=== PATIENT | female | born 1990 | race Caucasian/White ===

== ENCOUNTER 2016-10-08 00:15 | Emergency (ER) | payer OTHER ==
[~2016-10-08] VITALS: Ht 165.1 cm; Wt 95.3 kg
[2016-10-08 00:18] VITALS: BP 124/78; PULSE 98; RESP 16; O2SAT 99
--- NOTE | 2016-10-08 00:41 | ED.REPORT ---
HPI-Abd Pain F Under 41 Date of Service Oct 08, 2016 ED Provider: Boni Anderson MD Pt is a 26 y.o. female who presents to the ED c/o vomiting onset 5 days ago. Pt reports associated nausea, abdominal pain, and decreased PO intake. Pt states that it is possible she is as they have been trying, she states her sx are similar to the last time she was however she had a negative test several days ago. Nursing Notes Stated Complaint: VOMITING Chief Complaint: General Complaint Nursing Notes Reviewed: Yes Allergies: Coded Allergies: No Known Allergies (Unverified , 10/08/16) General Time Seen by MD: 00:39 Chief Complaint Vomiting mild Hx Obtained From: Patient Arrived By: Walk-in Sudden in Onset?: Yes Onset Occurred: 5 days ago Symptom Duration: Since onset Location: : Diffuse Quality: Painful Severity: Current: No pain currently Severity: Maximum: Moderate Past Medical History Past Medical History Healthy Past Surgical History None reported Social History Alcohol Use: "Social" Ambulatory Status Independent Review of Systems Decreased PO intake GI: Reports: Abdominal pain, Nausea, Vomiting Complete sys rev & neg: except as marked. Physical Exam Initial Vital Signs Vital Signs (First) Date Time Temp Pulse Resp B/P Pulse Ox O2 Delivery O2 Flow Rate FiO2 10/08/16 00:18 37.2 98 16 124/78 99 Room Air Initial VS: Reviewed, Vital signs normal Head / Eyes: Atraumatic, Normocephalic Extremities: Vascular intact, Neuro intact Skin: Warm, Dry, No cyanosis Neurologic: Alert, Oriented, Nonfocal Psychiatric: Mood/affect normal, Behavior normal, Normal thought content General/Constitutional: Awake, Alert, No acute distress, Well developed, Not toxic appearing Appearance / Presentation: Positive: Obese, Pale Respiratory / Chest: Atraumatic, Breath sounds NL, Breath sounds = bilat, No respiratory distress Cardiovascular: Heart rate NL, Regular rhythm, Heart sounds NL, Peripheral circulation NL Abdomen: Atraumatic, Soft, No distention Back: Atraumatic ENT: Atraumatic Mouth: Positive: Mucous membranes dry Interpretation & Diagnostics Lab Results Interpretation Test 10/08/16 00:53 10/08/16 01:10 Hold Urine Received (Received) Hold Purple Top Tube Received (Received) Hold Organ Top Tube Received (Received) Point of Care Testing: Preg test pos - urine Re-Eval/Medical Decision Med Decision/Clinical Course 6-year-old female with nausea and vomiting. She is found to be . She was given Phenergan and a liter of IV hydration with improvement. She will be discharged home to follow up with her regular doctor. Source of Hx: Old records Re-Evaluation/Progress : Time of Eval: 02:37 Re-Evaluation/Progress Note: Pt rechecked. Pt is feeling improved. Discussed plan for discharge, pt understands and agrees with plan. Counseled Regarding: Diagnosis, Lab results, Need for follow-up, When/why to return to ED Discharge & Departure Primary Impression: Dehydration Additional Impressions: Weeks of gestation: unspecified Qualified Code: Z33.1 - state, incidental Vomiting Vomiting type: unspecified Vomiting Intractability: unspecified Nausea presence: with nausea Qualified Code: R11.2 - Nausea with vomiting, unspecified Disposition: Home Discharge Condition All VS Reviewed: Yes Condition: Improved Patient Instructions: (ED) Additional Instructions: You are . Small amounts of clear liquids frequently. Talk to your regular doctor about nausea medicines for . Referrals: [facility] Scribe Attestation Portions of this note were transcribed by Analia Snider. I, Dr. Anderson personally performed the history, physical exam and medical decision-making; I reviewed and confirmed the accuracy of the information in the transcribed note. Signed by: Charla Mao, 10/08/16 and 0251. copies to: [facility] Boni Anderson MD Oct 08, 2016 00:41 ANALIA SNIDER Oct 08, 2016 00:53
[2016-10-08] MEDS ORDERED: 0.9% Sodium Chloride 1,000 ML IV ONE (00:49)
[2016-10-08] MEDS ORDERED: Promethazine Inj 25 MG in 0.9% Sodium Chloride 50 ML IV ONE (00:50)
[2016-10-08 03:36] VITALS: BP 112/72; PULSE 100; RESP 16; O2SAT 99
== END 2016-10-08 03:05 | disposition home or self-care (01) ==
LOC: SED 00:15
DX: E86.0 Dehydration (principal); Z33.1 Pregnant state, incidental
CPT/HCPCS: 81025; 96361; 96374; 99284; J2550; J7030